=== PATIENT | male | born 1950 | race Caucasian/White ===

== ENCOUNTER 2023-04-23 09:30 | Emergency (ER) | payer OTHER ==
[~2023-04-23] VITALS: Ht 170.2 cm; Wt 85.7 kg
[2023-04-23 10:03] VITALS: BP 139/71; PULSE 85; RESP 16; TEMP 98.6; O2SAT 97
== END 2023-04-23 10:25 | disposition home or self-care (01) ==
LOC: ER 09:30
DX: T83.098A Other mechanical complication of other urinary catheter, initial encounter (principal); E78.5 Hyperlipidemia, unspecified; I10 Essential (primary) hypertension; Z46.6 Encounter for fitting and adjustment of urinary device
CPT/HCPCS: 51702